=== PATIENT | female | born 1960 | race Caucasian/White ===

== ENCOUNTER 2024-09-08 16:20 | Inpatient (IN) | payer BC, OTHER ==
[~2024-09-08] VITALS: Ht 165.1 cm; Wt 68.5 kg
[2024-09-08 16:50] VITALS: PULSE 95; RESP 14; O2SAT 95
[2024-09-08] MEDS: ASPirin 325 MG TAB PO ONE (17:00)
[2024-09-08 17:07] LABS: Basophils # (auto) 0 10 ^3/uL (0-0.2); Basophils % (auto) 0.3 % (0.0-2.0); Eosinophils # (auto) 0 10 ^3/uL (0-0.8); Eosinophils % (auto) 0.6 % (0.0-7.0); Hematocrit 43.8 % (36.0-46.0); Hemoglobin 14.7 g/dL (12.2-16.2); Lymphocytes # (auto) 1.3 10 ^3/uL (0.4-5.4); Lymphocytes % (auto) 21.6 % (10.0-50.0); Mean Corpuscular Hemoglobin 29.6 pg (28.0-32.0); Mean Corpuscular Hgb Conc. 33.6 g/dL (32.0-36.0); Monocytes # (auto) 0.7 10 ^3/uL (0-1.3); Monocytes % (auto) 11.5 % (0.0-12.0); Neutrophils # (auto) 3.9 10 ^3/uL (1.6-8.6); Nucleated Red Blood Cells % 0.1 %; Platelet Count (auto) 236 10^3/uL (140-450); Red Blood Cells 4.97 10^6/uL (4.0-5.20); Red Cell Distribution Width 13.6 % (11.8-14.3); White Blood Cell 5.9 10^3/uL (4.4-10.8)
[2024-09-08] MEDS: hydrALAZINE HCL 20 MG/ML VL IV ONE (17:08)
--- NOTE | 2024-09-08 17:14 | DVH ---
EXAM: XY CHEST PORTABLE CLINICAL HISTORY: chest pain TECHNIQUE: Single AP view of the chest WID: COMPARISON: None FINDINGS: Lines and tubes: None Chest: The heart size and pulmonary vasculature is within normal limits. Calcified plaque projects over the thoracic spine No pleural effusion, pneumothorax, or consolidation. The osseous structures are grossly intact. Mild right curvature of the thoracic spine IMPRESSION: No acute cardiopulmonary abnormality.
[2024-09-08 17:24] LABS: Alanine Aminotransferase 23 U/L (7-40); Albumin 4.8 g/dL (3.2-4.8); Anion Gap 11 (5-15); Aspartate Aminotransferase 20 U/L (13-40); Calcium 9.9 mg/dL (8.7-10.4); Carbon Dioxide 23 mmol/L (20-31); Magnesium 1.8 mg/dL (1.6-2.6)
[2024-09-08 17:25] LABS: Bilirubin, Total 0.4 mg/dL (0.2-1.0); Total Protein 7.1 g/dL (5.7-8.2)
[2024-09-08 17:26] LABS: Alkaline Phosphatase 132 U/L (46-116); Blood Urea Nitrogen 8 mg/dL (9-23); Chloride 94 mmol/L (98-107); Glucose 132 mg/dL (74-106); Potassium 3.4 mmol/L (3.5-5.1); Sodium 128 mmol/L (136-145)
[2024-09-08 17:29] LABS: INR 0.97 (0.9-1.15); Partial Thromboplastin Time 29.1 SEC (24.5-34.5); Prothrombin Time 10.3 sec (9.3-11.8)
[2024-09-08] MEDS: SODIUM CHLORIDE 0.9% 500 ML IV ONE (17:49)
[2024-09-08] MEDS: ONDANSETRON HCL 4 MG/2 ML VIAL IV ONE (17:49)
--- NOTE | 2024-09-08 19:28 | ED.PDOC ---
History of Present Illness HPI Comments 64-year-old female patient with past medical history of SVTs, hypertrophic nonischemic cardiomyopathy, mixed connective tissue disorder presented with complaints of nausea, vomiting, dizziness, generalized weakness. Patient started having vomiting two days ago but was improved yesterday but today again had episodes of vomiting, without bleeding, does not remember the number of episode. She also mentioned associated dizziness they started at the same time and mild chest pain which she describes that pressure-like, substernal, nonradiating. She also mentioned associated palpitation which she thought was PVCs and she decided to come to the ER. She denied any diarrhea, shortness of breath, cough, abdominal pain, seizures, melena, hematemesis, hematochezia. Past medical history SVTs, hypertrophic nonischemic cardiomyopathy, mixed connective tissue disorder Past surgical history Denied Social history Denied smoking, alcohol, marijuana or any drug intake Medication history Patient takes Cardizem, levothyroxine, Plaquenil Allergic history Beta-annie Family history Hypertrophic obstructive cardiomyopathy in multiple members including sister and mother Review of system As described in the HPI Examination General Appearance: Alert, Oriented X3, Cooperative, mild distress HEENT: EOMI Respiratory: Clear to auscultation, Normal air movement Cardiovascular: Regular rate, Normal S1, Normal S2 Abdominal: Normal bowel sounds Extremities: No cyanosis, No edema, Normal pulses, No tenderness/swelling Skin: No rashes, No breakdown Neuro normal speech and tone Chief Complaint: General Weakness Time Seen by MD: 16:35 Allergies: Uncoded Allergies: BETA BLOCKERS (Allergy, Unknown, 09/08/24) Information Source: Patient Mode of Arrival: Wheelchair Differential Dx Considerations may include: Gastritis, gastroenteritis, chest wall pain, aortic dissection, angina, TN, hyponatremia, dehydration, pneumonia, pericarditis, UTI X-Ray, Labs, Meds, VS Vital Signs Date Time Temp Pulse Resp B/P (MAP) Pulse Ox O2 Delivery O2 Flow Rate FiO2 09/08/24 18:00 93 14 165/75 (105) 96 09/08/24 17:08 177/95 09/08/24 16:55 105 09/08/24 16:50 95 14 95 Room Air* 0 21 09/08/24 16:47 97.8 95 14 187/91 (123) 95 97.8 09/08/24 16:37 97.8 112 20 209/106 (140) 100 Lab Test 09/08/24 17:25 09/08/24 16:50 09/08/24 16:40 Range/Units Troponin I High Sensitivity 6 5 </=34 ng/L White Blood Count 5.9 4.4-10.8 10^3/uL Red Blood Count 4.97 4.0-5.20 10^6/uL Hemoglobin 14.7 12.2-16.2 g/dL Hematocrit 43.8 36.0-46.0 % Mean Corpuscular Volume 88.0 80.0-100.0 fL Mean Corpuscular Hemoglobin 29.6 28.0-32.0 pg Mean Corpuscular Hemoglobin Concent 33.6 32.0-36.0 g/dL Red Cell Distribution Width 13.6 11.8-14.3 % Platelet Count 236 140-450 10^3/uL Mean Platelet Volume 8.1 6.9-10.8 fL Neutrophils (%) (Auto) 66.0 37.0-80.0 % Lymphocytes (%) (Auto) 21.6 10.0-50.0 % Monocytes (%) (Auto) 11.5 0.0-12.0 % Eosinophils (%) (Auto) 0.6 0.0-7.0 % Basophils (%) (Auto) 0.3 0.0-2.0 % Neutrophils # (Auto) 3.9 1.6-8.6 10 ^3/uL Lymphocytes # (Auto) 1.3 0.4-5.4 10 ^3/uL Monocytes # (Auto) 0.7 0-1.3 10 ^3/uL Eosinophils # (Auto) 0 0-0.8 10 ^3/uL Basophils # (Auto) 0 0-0.2 10 ^3/uL Nucleated Red Blood Cells 0.1 % Prothrombin Time 10.3 9.3-11.8 sec Prothrombin Time INR 0.97 0.9-1.15 Activated Partial Thromboplast Time 29.1 24.5-34.5 SEC D-Dimer, Quantitative 0.35 0.0-0.49 mg/L FEU Sodium Level 128 L 136-145 mmol/L Potassium Level 3.4 L 3.5-5.1 mmol/L Chloride Level 94 L 98-107 mmol/L Carbon Dioxide Level 23 20-31 mmol/L Anion Gap 11 5-15 Blood Urea Nitrogen 8 L 9-23 mg/dL Creatinine 0.80 0.550-1.02 mg/dL Glomerular Filtration Rate Calc 82 >90 mL/min BUN/Creatinine Ratio 10.0 10.0-20.0 Serum Glucose 132 H 74-106 mg/dL Calcium Level 9.9 8.7-10.4 mg/dL Magnesium Level 1.8 1.6-2.6 mg/dL Total Bilirubin 0.4 0.2-1.0 mg/dL Aspartate Amino Transferase (AST) 20 13-40 U/L Alanine Aminotransferase (ALT) 23 7-40 U/L Alkaline Phosphatase 132 H 46-116 U/L B-Type Natriuretic Peptide 22.37 0-100 pg/mL Total Protein 7.1 5.7-8.2 g/dL Albumin 4.8 3.2-4.8 g/dL Thyroid Stimulating Hormone (TSH) 3.03 0.55-4.78 uIU/mL Lactic Acid Level 2.7 *H 0.4-2.0 mmol/L Current Medications Medications (Trade) Dose Ordered Sig/Jessica Route Start Time Stop Time Status Last Admin Hydralazine HCl (Apresoline Injection) 5 mg ONCE ONCE IV 09/08/24 16:45 09/08/24 16:46 DC 09/08/24 17:08 Sodium Chloride 500 ml @ 500 mls/hr Q1H ONCE IV 09/08/24 17:45 09/08/24 18:44 DC 09/08/24 17:49 Ondansetron HCl (Zofran) 4 mg ONCE ONCE IV 09/08/24 17:45 09/08/24 17:46 DC 09/08/24 17:49 Time of 1ST Reevaluation: 19:26 Reevaluation 1ST: Unchanged Patient Education/Counseling: Diagnosis, Treatment Family Education/Counseling: No Family Present Comments Patient presented with the vomiting, chest pain, dizziness, hypertensive crisis. workup was initiated. patient was found with the above mentioned diagnosis. Patient was given: IV hydralazine, IV fluids, IV ondansetron, potassium effervescent, magnesium oxide EKG showed ST depression in multiple leads, troponins were within normal limits Patient has been observed in the ED adequate length of time to insure improvement/stability. patient was admitted to the medicine team for further evaluation and treatment of their presentation. Patient needs hydration. Departure 1 Departure Time of Disposition: 19:26 Impression: Primary Impression: Chest pain Additional Impressions: Vomiting Hypertensive crisis Dizziness Disposition: ADMITTED INPATIENT Admit to: Tele Condition: Guarded Heart Score Heart Score: Heart Score Response (Comments) Value History Slightly Suspicious [address]-Deviation 2 Age >65 2 Risk Factors 1 or 2 risk factors 1 Troponin Normal limit 0 Total 5 PRIYANKA GA RESIDENT Sep 08, 2024 19:28
[2024-09-08 19:29] LABS: Lactic Acid w/Reflex 2.7 mmol/L (0.4-2.0)
[2024-09-08 19:50] VITALS: O2SAT 97
[2024-09-08] MEDS ORDERED: MORPHINE SULFATE INJ 2 MG/ml SYRG IV PRN (20:30)
[2024-09-08] MEDS ORDERED: NITROGLYCERIN 0.4 MG SL TAB SL PRN (20:30)
[2024-09-08] MEDS ORDERED: ONDANSETRON HCL 4 MG/2 ML VIAL IV PRN (20:30)
[2024-09-08] MEDS: PANTOPRAZOLE 40 MG/10 ML VIAL INJ IV ONE (20:39)
[2024-09-08] MEDS: MORPHINE SULFATE INJ 2 MG/ml SYRG IV PRN (20:59)
[2024-09-08] MEDS: MAGNESIUM OXIDE 400 MG TAB PO ONE (21:00)
[2024-09-08] MEDS: POTASSIUM EFFERVESENT TAB 25 MEQ GT ONE (21:00)
[2024-09-08] MEDS: SODIUM CHLOR 0.9% PF (SALINE LOCK) 10ML VIAL/SYR IV SCH (21:00)
[2024-09-08] MEDS ORDERED: PANTOPRAZOLE 40 MG/10 ML VIAL INJ IV ONE (21:15)
[2024-09-08] MEDS: SODIUM CHLORIDE 0.9% 1,000 ML IV SCH (21:15)
--- NOTE | 2024-09-08 21:24 | DVHHPRES ---
History of Present Illness Resident Creating Document: ARIELLE QUIÑONEZ RESIDENT History of Present Illness Patient is 64 years old female with past medical history of nonischemic cardiomyopathy/HOCM runs in the family from father's side, hypertension, mixed connective tissue disease, Raynaud's phenomenon, GERD, hypothyroidism came with a complaint of nausea and vomiting and dizziness. As per patient she had nausea and vomited 3 times 2 days before, vomiting was mostly watery content, no blood. Then yesterday she felt better but today in the afternoon she started having nausea and vomiting again, 3 times, watery content, no blood. Patient also reported some dizziness and lightheadedness but no loss of consciousness. On further discussion patient also reported having pressure-like chest pain, central in nature 5/10, no aggravating or relieving factor, no radiation. Patient denied any constipation or diarrhea, dysuria, cough, fever, dysarthria or change in vision or acute joint pain or swelling. on Arrival blood pressure was 209/106, tachycardia pulse 112. EKG revealed ST depression on 1, 2, aVL, V3, V4, V5, V6. Initial lab workup revealed hyponatremia with sodium 128, hypokalemia potassium 3.4, elevated alkaline phosphate 132, other lab workup Troponin, BNP, WBC, hemoglobin, serum creatinine, magnesium, serum bilirubin, AST, ALT was within normal limit. UDS negative, serum alcohol 3.7, D-dimer .35. CXR revealed cardiomegaly. Home medications-Cardizem 120 mg q.d., Levothyroxine 25 mcg q.a.m., hydroxychloroquine 200 mg daily, duloxetine 60 mg daily, omeprazole 40 mg daily, Boniva once a month Past Medical History nonischemic cardiomyopathy, hypertension, mixed connective tissue disease, Raynaud's phenomenon, GERD, hypothyroidism Past Surgical History 2 , tendon transplant both leg Family History Family history of hypertrophic obstructive cardiomyopathy in sister in and father's side, father of CVD Past Social History Denies smoking, alcoholism class drug abuse Review of Systems Review of Systems Allergy- beta annie Personal History/ Social History- Patient was seen today at the bedside. Respiratory- denies cough or short of breath or wheezing Gastrointestinal- denies any rectal bleeding, nausea or vomiting Musculoskeletal-denies acute joint swelling or tenderness or redness Neurological- denies acute dysarthria, dysphagia, change in vision Psychiatry- denies depression or SI or HI Skin- denies acute rash or purpura Allergies: Coded Allergies: Nifedipine (Verified Allergy, Severe, 09/09/24) Shellfish Allergy (Verified Allergy, Unknown, 09/09/24) Uncoded Allergies: BETA BLOCKERS (Allergy, Unknown, 09/08/24) Medications Current Medications Medications Dose Ordered Sig/Jessica Route Start Time Stop Time Status Last Admin Dose Admin Sodium Chloride 10 ml Q8HR IV 09/08/24 22:00 09/08/24 21:00 10 ML Ondansetron HCl 4 mg Q4HP PRN IV 09/08/24 20:30 Acetaminophen 650 mg Q6HP PRN PO 09/08/24 20:30 Morphine Sulfate 2 mg Q4HPRN PRN IV 09/08/24 20:30 09/08/24 20:59 2 MG Nitroglycerin 0.4 mg Q5MINP PRN SL 09/08/24 20:30 Morphine Sulfate 2 mg Q30M PRN IV 09/08/24 20:30 Hydralazine HCl 10 mg Q6HP PRN IV 09/08/24 20:45 UNV Exam Vital Signs Vital Signs Date Time Temp Pulse Resp B/P (MAP) Pulse Ox O2 Delivery O2 Flow Rate FiO2 09/08/24 20:59 107 16 152/62 09/08/24 18:00 96 09/08/24 16:50 Room Air* 0 21 09/08/24 16:47 97.8 97.8 Exam General examination- question awake, alert, oriented, conversant HEENT- PEERLA, no acute nasal discharge Cardiovascular- S1-S2 audible, rate and rhythm regular, + murmur Respiratory- CTAB, no wheeze or rhonchi Gastrointestinal-nontender, bowel sound+. Nondistended Musculoskeletal-no acute joint swelling or tenderness or redness# Lower extremity- no leg edema Neurological- cranial nerves intact, no acute dysarthria or dysphagia Psychiatry- denies depression or SI or HI Skin- no acute rash or purpura Labs/Xrays Labs Test 09/08/24 19:53 09/08/24 16:50 Range/Units Lactic Acid Level 1.8 0.4-2.0 mmol/L Troponin I High Sensitivity 8 </=34 ng/L White Blood Count 5.9 4.4-10.8 10^3/uL Red Blood Count 4.97 4.0-5.20 10^6/uL Hemoglobin 14.7 12.2-16.2 g/dL Hematocrit 43.8 36.0-46.0 % Mean Corpuscular Volume 88.0 80.0-100.0 fL Mean Corpuscular Hemoglobin 29.6 28.0-32.0 pg Mean Corpuscular Hemoglobin Concent 33.6 32.0-36.0 g/dL Red Cell Distribution Width 13.6 11.8-14.3 % Platelet Count 236 140-450 10^3/uL Mean Platelet Volume 8.1 6.9-10.8 fL Neutrophils (%) (Auto) 66.0 37.0-80.0 % Lymphocytes (%) (Auto) 21.6 10.0-50.0 % Monocytes (%) (Auto) 11.5 0.0-12.0 % Eosinophils (%) (Auto) 0.6 0.0-7.0 % Basophils (%) (Auto) 0.3 0.0-2.0 % Neutrophils # (Auto) 3.9 1.6-8.6 10 ^3/uL Lymphocytes # (Auto) 1.3 0.4-5.4 10 ^3/uL Monocytes # (Auto) 0.7 0-1.3 10 ^3/uL Eosinophils # (Auto) 0 0-0.8 10 ^3/uL Basophils # (Auto) 0 0-0.2 10 ^3/uL Nucleated Red Blood Cells 0.1 % Prothrombin Time 10.3 9.3-11.8 sec Prothrombin Time INR 0.97 0.9-1.15 Activated Partial Thromboplast Time 29.1 24.5-34.5 SEC D-Dimer, Quantitative 0.35 0.0-0.49 mg/L FEU Sodium Level 128 L 136-145 mmol/L Potassium Level 3.4 L 3.5-5.1 mmol/L Chloride Level 94 L 98-107 mmol/L Carbon Dioxide Level 23 20-31 mmol/L Anion Gap 11 5-15 Blood Urea Nitrogen 8 L 9-23 mg/dL Creatinine 0.80 0.550-1.02 mg/dL Glomerular Filtration Rate Calc 82 >90 mL/min BUN/Creatinine Ratio 10.0 10.0-20.0 Serum Glucose 132 H 74-106 mg/dL Calcium Level 9.9 8.7-10.4 mg/dL Magnesium Level 1.8 1.6-2.6 mg/dL Total Bilirubin 0.4 0.2-1.0 mg/dL Aspartate Amino Transferase (AST) 20 13-40 U/L Alanine Aminotransferase (ALT) 23 7-40 U/L Alkaline Phosphatase 132 H 46-116 U/L B-Type Natriuretic Peptide 22.37 0-100 pg/mL Total Protein 7.1 5.7-8.2 g/dL Albumin 4.8 3.2-4.8 g/dL Thyroid Stimulating Hormone (TSH) 3.03 0.55-4.78 uIU/mL Assessment/Plan Assessment/Plan #Hypertensive urgency -continue hydralazine 10 mg q.6h p.r.n. --continue Cardizem 120 mg q.d. -monitor vitals #Nausea and vomiting likely due to esophagitis or gastritis -continue pantoprazole 40 mg IV daily #Acute Chest pain likely due to hypertensive urgency -rule out ACS -EKG- no acute ST elevation -EKG changes likely due to hypertrophic cardiomyopathy --troponin I and BNP with a normal limit -continue current management #Dizziness, lightheaded likely due to hypertensive urgency/dehydration -continue IV normal mg of IV daily -monitor BP #Hyponatremia likely due to nausea and vomiting - continue IV normal saline 100 mL/hour -monitor CMP # Lactic acidosis -lactic acid 0.7> 1.8 -continue IV normal saline 100 mL/hours #Hypokalemia, -potassium 3.4 -replenished #Hypothyroidism -TSH 3.03 -continue levothyroxine 25 mcg q.a.m. #Mixed connective tissue disease -continue Cardizem 120 mg q.d. # Raynaud's phenomenon --continue Cardizem 120 mg q.d. # Hypertrophic obstructive cardiomyopathy -continue current management # History of SVT -resume home medications # GERD -pantoprazole IV 40 mg daily Holding hydroxy chloroquine, Ibendronate to rule out esophagitis versus gastritis, continuing with the pantoprazole Goals of care/advance care planning; FULL CODE; discussed with the patient >15 minutes PUD prophylaxis: Pantoprazole DVT prophylaxis: Lovenox PCP-Dr. Munoz [employer] Dr. Clemons Plan discussed with Dr. Hawkins, nursing staff, patient Total time spent on patient evaluation, chart review, assessment and plan, discussion discussion >30 minutes Plan discussed with: Patient Plan discussed with: Patient, Spouse, Other (RN) My Orders Orders - ARIELLE QUIÑONEZ Procedure Category Date Status Time Sodium Chloride Lock PHA 09/08/24 In Process (Saline Lock Ns) 22:00 Ondansetron Hcl PHA 09/08/24 In Process (Zofran) 20:30 Complete Blood Count LAB 09/09/24 Verified 04:00 Comprehensive LAB 09/09/24 Verified Metabolic Panel 04:00 Cardiac DIET 09/09/24 Transmitted Diet-2gna,Lofat,Lochol Breakfast Condition: Unstable VAISHNAVI 09/08/24 In Process 20:28 Acetaminophen Tablet PHA 09/08/24 In Process (Tylenol Tablet) 20:30 Morphine Sulfate PHA 09/08/24 In Process Injection 20:30 Nitroglycerin PHA 09/08/24 In Process Sublingual (Ntrostat 20:30 Morphine Sulfate PHA 09/08/24 In Process Injection 20:30 Oxygen By Nasal RT 09/08/24 Transmitted Cannula 20:28 Stat Ekg For Chest VAISHNAVI 09/08/24 In Process Pain 20:28 Notify Md Of Changes VAISHNAVI 09/08/24 In Process From Base 20:28 Editor Dictionary For [facility] 09/08/24 In Process 24 Hours 20:28 Emergency Dysrhythmia [facility] 09/08/24 In Process Protocol 20:28 Rhythm Strips Once [facility] 09/08/24 In Process Every Shift 20:28 Admit ADMIT 09/08/24 Transmitted 20:40 Hydralazine Injection [facility] 09/08/24 Logged (Apresoline Inject 20:45 Date of Service: Sep 08, 2024 Billing Provider: MARILOU HAWKINS MD Common Visit Codes: 63695-BFWPSCQ INP/OBS CARE (HIGH) Secondary Visit Codes: 14723-[id number] CARE PLAN 30 MINUTES ARIELLE QUIÑONEZ Sep 08, 2024 21:24 MARILOU HAWKINS MD Sep 11, 2024 11:57
[2024-09-09] VITALS (7 sets, daily range): BP systolic 123–157; BP diastolic 66–91; PULSE 67–93; RESP 16–18; TEMP 97.7–98.4; O2SAT 98–100
[2024-09-09 00:06] LABS: Urine Bacteria None Seen /hpf (None Seen); Urine WBC None Seen /hpf (0 - 5)
[2024-09-09 00:56] LABS: Urine Blood Negative /uL (Negative); Urine Clarity Clear (Clear); Urine Protein, UAD Negative (Negative); Urine Specific Gravity 1.002 (1.001-1.035); Urine Urobilinogen Normal (Negative)
[2024-09-09 00:59] LABS: Urine Color STRAW (Yellow)
[2024-09-09 01:21] LABS: Sodium Urine 33 mmol/L (40-220)
[2024-09-09 01:29] LABS: Amphetamine Screen, Urine Neg (NEGATIVE); Benzodiazephine Screen, Urine Neg (NEGATIVE)
[2024-09-09 01:30] LABS: Barbiturate Scree,Urine Neg (NEGATIVE); Cocaine Screen, Urine Neg (NEGATIVE); Creatinine, Urine 7.86 mg/dL (30.0-125.0); Opiate Scree,Urine Neg (NEGATIVE)
[2024-09-09 01:31] LABS: Cannabinoid Screen, Urine Neg (NEGATIVE); Phencyclidine Screen, Urine Neg (NEGATIVE)
[2024-09-09 02:30] LABS: Protein, Urine < 6.0 mg/dL (1-14)
[2024-09-09 02:33] LABS: Creatinine, Urine 7.79 mg/dL (30.0-125.0); Urine Protein/Creatinine Ratio 0.77
[2024-09-09] MEDS: ENOXAPARIN SOD 40 MG/0.4 ML SYRINGE SC ONE (03:30)
[2024-09-09] MEDS ORDERED: DILT-29 PO (04:42)
[2024-09-09] MEDS ORDERED: LEVO25TA6 PO (04:42)
[2024-09-09] MEDS ORDERED: DULO60CA41 PO (04:42)
[2024-09-09] MEDS ORDERED: HYDR200T36 PO (04:42)
[2024-09-09] MEDS ORDERED: OMEP20TA PO (04:42)
[2024-09-09] MEDS: LEVOTHYROXINE SODIUM 25 MCG TAB PO SCH (06:26)
[2024-09-09 08:25] LABS: Basophils # (auto) 0 10 ^3/uL (0-0.2); Basophils % (auto) 0.6 % (0.0-2.0); Eosinophils # (auto) 0 10 ^3/uL (0-0.8); Eosinophils % (auto) 0.4 % (0.0-7.0); Hematocrit 40.9 % (36.0-46.0); Hemoglobin 14.2 g/dL (12.2-16.2); Lymphocytes % (auto) 28.7 % (10.0-50.0); Mean Corpuscular Hemoglobin 30.2 pg (28.0-32.0); Mean Corpuscular Hgb Conc. 34.6 g/dL (32.0-36.0); Mean Corpuscular Volume 87.3 fL (80.0-100.0); Monocytes # (auto) 0.5 10 ^3/uL (0-1.3); Monocytes % (auto) 13.9 % (0.0-12.0); Neutrophils % (auto) 56.4 % (37.0-80.0); Nucleated Red Blood Cells % 0.1 %; Platelet Count (auto) 235 10^3/uL (140-450); Red Blood Cells 4.69 10^6/uL (4.0-5.20); Red Cell Distribution Width 13.4 % (11.8-14.3); White Blood Cell 3.6 10^3/uL (4.4-10.8)
[2024-09-09 08:46] LABS: Alanine Aminotransferase 18 U/L (7-40); Alkaline Phosphatase 110 U/L (46-116); Anion Gap 10 (5-15); Calcium 9.7 mg/dL (8.7-10.4); Carbon Dioxide 23 mmol/L (20-31); Magnesium 2.3 mg/dL (1.6-2.6); Potassium 3.8 mmol/L (3.5-5.1); Sodium 140 mmol/L (136-145)
[2024-09-09 08:47] LABS: Albumin 4.3 g/dL (3.2-4.8)
[2024-09-09 08:48] LABS: Bilirubin, Total 0.4 mg/dL (0.2-1.0); Total Protein 6.5 g/dL (5.7-8.2)
[2024-09-09 08:56] LABS: Aspartate Aminotransferase 12 U/L (13-40); BUN/Creatinine Ratio 7.5 (10.0-20.0); Blood Urea Nitrogen < 5 mg/dL (9-23); Chloride 107 mmol/L (98-107); Glucose 118 mg/dL (74-106)
[2024-09-09] MEDS: PANTOPRAZOLE 40 MG/10 ML VIAL INJ IV SCH (10:12)
[2024-09-09] MEDS: DULoxetine HCL 30 MG CAP PO SCH (10:12)
[2024-09-09] MEDS: D5W/SOD CHL 0.45% 500 ML IV SCH (10:23)
[2024-09-09] MEDS: dilTIAZem 120MG ER CAP PO SCH (10:28)
--- NOTE | 2024-09-09 13:32 | DVHSR ---
APPROVED REPORT EXAM: LIMITED Two-dimensional and M-mode echocardiogram with Doppler and color Doppler. Blood Pressure: 130/66 mmHg INDICATION HOCM, hypertensive urgency RISK FACTORS Height: 5'5, Weight: 151 DIMENSIONS LVDd4.3 (3.8-5.7cm)LA (2D)3.8 (1.9-4.0cm)Aortic Root3.7 (2.0-3.7cm) LVDs2.9 (2.5-4.0cm)LA (MM) (1.9-4.0cm)Aortic Cusp Exc1.7 (1.5-2.0cm) EF (%) 60.0 (55-70%)Rt. Atrium2.6 (1.9-4.0cm)Asc. Aorta3.2 cm IVSd1.2 (0.7-1.1cm)RV (D) (1.8-2.4cm) PWd1.4 (0.7-1.1cm) Mitral Valve MitralMitral Stenosis E wave0.90m/sMV Mean GR.mmHg A wave1.03m/sMV Peak GR.33mmHg E/A ratio0.92D MVAcm2 DECEL [id number] 1/2 Timems Aortic Valve Aortic ValveAortic Stenosis V11.04m/Rafael Mean GR.4mmHg V21.26m/Rafael Peak GR.6mmHg LVOT Diameter1.8 (1.8-2.4cm)Doppler AVA2.10cm2 Pulmonic Valve V20.97m/s Other Information Conclusion Normal left ventricular size and dimension. Normal left ventricular systolic function estimated ejec tion fraction of 60%. There is a grade 1 diastolic dysfunction. Normal right ventricular size and dimension. Normal right ventricular systolic function. Normal biatrial size and dimension. Normal aortic valve structure and function. Normal mitral valve structure and function. Normal tricuspid valve structure and function. There is trivial tricuspid valve regurgitation. The pulmonary valve is grossly normal. No pericardial effusion.
[2024-09-09] MEDS: ACETAMINOPHEN 325 MG TAB PO PRN (13:40)
[2024-09-09] MEDS: hydrALAZINE HCL 20 MG/ML VL IV PRN (13:58)
[2024-09-09 18:53] LABS: Anion Gap 7 (5-15); Carbon Dioxide 23 mmol/L (20-31); Potassium 3.9 mmol/L (3.5-5.1); Sodium 138 mmol/L (136-145)
[2024-09-09 18:54] LABS: Calcium 9.4 mg/dL (8.7-10.4)
[2024-09-09 18:59] LABS: BUN/Creatinine Ratio 14.7 (10.0-20.0); Blood Urea Nitrogen 10 mg/dL (9-23); Glucose 93 mg/dL (74-106)
[2024-09-09 19:00] LABS: Chloride 108 mmol/L (98-107)
--- NOTE | 2024-09-09 23:00 | DVHDSRES ---
Discharge Summary Date of Admission Resident Creating Document: AMANDA PRIETO RESIDENT Sep 08, 2024 at 20:28 Date of Discharge: Sep 09, 2024 Admitting Diagnosis Chest pain, nausea, vomiting, dizziness/lightheaded Wounds: no wounds Labs/Diagnostic Data: Laboratory Results Test 09/09/24 18:14 09/09/24 07:25 09/08/24 23:30 09/08/24 19:53 Sodium Level 138 mmol/L (136-145) Potassium Level 3.9 mmol/L (3.5-5.1) Chloride Level 108 mmol/L (98-107) Carbon Dioxide Level 23 mmol/L (20-31) Anion Gap 7 (5-15) Blood Urea Nitrogen 10 mg/dL (9-23) Creatinine 0.68 mg/dL (0.550-1.02) Glomerular Filtration Rate Calc 97 mL/min (>90) BUN/Creatinine Ratio 14.7 (10.0-20.0) Serum Glucose 93 mg/dL (74-106) Calcium Level 9.4 mg/dL (8.7-10.4) White Blood Count 3.6 10^3/uL (4.4-10.8) Red Blood Count 4.69 10^6/uL (4.0-5.20) Hemoglobin 14.2 g/dL (12.2-16.2) Hematocrit 40.9 % (36.0-46.0) Mean Corpuscular Volume 87.3 fL (80.0-100.0) Mean Corpuscular Hemoglobin 30.2 pg (28.0-32.0) Mean Corpuscular Hemoglobin Concent 34.6 g/dL (32.0-36.0) Red Cell Distribution Width 13.4 % (11.8-14.3) Platelet Count 235 10^3/uL (140-450) Mean Platelet Volume 8.3 fL (6.9-10.8) Neutrophils (%) (Auto) 56.4 % (37.0-80.0) Lymphocytes (%) (Auto) 28.7 % (10.0-50.0) Monocytes (%) (Auto) 13.9 % (0.0-12.0) Eosinophils (%) (Auto) 0.4 % (0.0-7.0) Basophils (%) (Auto) 0.6 % (0.0-2.0) Neutrophils # (Auto) 2.0 10 ^3/uL (1.6-8.6) Lymphocytes # (Auto) 1.0 10 ^3/uL (0.4-5.4) Monocytes # (Auto) 0.5 10 ^3/uL (0-1.3) Eosinophils # (Auto) 0 10 ^3/uL (0-0.8) Basophils # (Auto) 0 10 ^3/uL (0-0.2) Nucleated Red Blood Cells 0.1 % Magnesium Level 2.3 mg/dL (1.6-2.6) Total Bilirubin 0.4 mg/dL (0.2-1.0) Aspartate Amino Transferase (AST) 12 U/L (13-40) Alanine Aminotransferase (ALT) 18 U/L (7-40) Alkaline Phosphatase 110 U/L (46-116) Total Protein 6.5 g/dL (5.7-8.2) Albumin 4.3 g/dL (3.2-4.8) Urine Color Straw (Yellow) Urine Clarity Clear (Clear) Urine pH 7.0 (5.0-9.0) Urine Specific [place] 1.002 (1.001-1.035) Urine Protein Negative (Negative) Urine Ketones Negative (Negative) Urine Blood Negative /uL (Negative) Urine Nitrite Negative (Negative) Urine Bilirubin Negative (Negative) Urine Urobilinogen Normal mg/dL (Negative) Urine Leukocyte Esterase Negative /uL (Negative) Urine RBC <1 /hpf (0 - 4) Urine WBC None seen /hpf (0 - 5) Urine Squamous Epithelial Cells None seen /hpf (<5) Urine Bacteria None seen /hpf (None Seen) Urine Osmolality 99 mOsm/kg Urine Creatinine 7.79 mg/dL (30.0-125.0) Urine Protein/Creatinine Ratio 0.77 Urine Sodium 33 mmol/L (40-220) Urine Glucose Normal mg/dL (Normal) Urine Total Protein < 6.0 mg/dL (1-14) Urine Opiates Screen Neg (NEGATIVE) Urine Fentanyl Screen Neg (NEGATIVE) Urine Barbiturates Screen Neg (NEGATIVE) Urine Phencyclidine Screen Neg (NEGATIVE) Urine Amphetamines Screen Neg (NEGATIVE) Urine Benzodiazepines Screen Neg (NEGATIVE) Urine Cocaine Screen Neg (NEGATIVE) Urine Cannabinoids Screen Neg (NEGATIVE) Lactic Acid Level 1.8 mmol/L (0.4-2.0) Troponin I High Sensitivity 8 ng/L (</=34) Plasma/Serum Blood Alcohol 3.7 mg/dL (<10) Test 09/08/24 16:50 Prothrombin Time 10.3 sec (9.3-11.8) Prothrombin Time INR 0.97 (0.9-1.15) Activated Partial Thromboplast Time 29.1 SEC (24.5-34.5) D-Dimer, Quantitative 0.35 mg/L FEU (0.0-0.49) B-Type Natriuretic Peptide 22.37 pg/mL (0-100) Thyroid Stimulating Hormone (TSH) 3.03 uIU/mL (0.55-4.78) Other Laboratory Tests 09/09/24 18:14 09/09/24 07:25 Brief Hx & Hospital Course: HPI Patient is a 64-year-old female with a past medical history as described below came to the ED with a chief complaint of multiple episodes of vomiting and dizziness for 1 day prior to admission. Patient reported that she lives in [place] and on Wednesday 4 days prior to admission he had 3 episodes of vomiting which most mostly whitish liquid and no blood. Patient denied fever, chills, abdominal pain. The following 2 days she traveled to [place] and was fine Wednesday she arrived at [place] where she was feeling nauseated and had 3-4 episodes of vomiting which mostly consisted of yellowish fluid, no blood, no associated fever, abdominal pain , chills, diarrhea. Patient reports that she had low appetite as in the previous 3-4 days and was eating only home cooked food. No previous travel history. Patient reports passing gas and states that she is usually constipated and she usually has a bowel movement once or twice every week. On admission patient had elevated blood pressure 209/106 mmHg, tachycardia pulse at 111. EKG revealed ST depression in lead onto 1,2 aVL V3, V4 V5. Initial lab workup revealed hyponatremia with sodium 128, hypokalemia potassium 3.4, elevated alkaline phosphate 132, other lab workup Troponin, BNP, WBC, hemoglobin, serum creatinine, magnesium, serum bilirubin, AST, ALT was within normal limit. UDS negative, serum alcohol 3.7, D-dimer .35. CXR revealed cardiomegaly. Past medical history: History of SVT, nonischemic cardiomyopathy, hypertension, mixed connective tissue disease, Raynaud's phenomenon, GERD, hypothyroidism, h istory of preeclampsia Past surgical history: 2 C sections, tendon repair left foot Family history: Family history of hypertrophic obstructive cardiomyopathy in sister. Father of VT in his 40s. Social history: Denies smoking, alcohol, drug use Home medication: Cardizem 120 mg once daily, duloxetine 60 mg once daily, hydroxychloroquine 200 mg once daily, levothyroxine 25 mcg q.a.m., omeprazole 40 mg once daily Hospital course Patient had elevated blood pressure when she was admitted to the ER and was given hydralazine IV. Lactic acid was elevated for which the patient was given IV fluids. Her potassium was slightly, which was adequately replenished. Patient's sodium was low at 128 and she was started on normal saline and in the morning her BMP showed improved serum sodium levels at 140. In the morning patient was done D5 half NS and in the afternoon her sodium came down to 138. Patient was started on her home medications. Orthostatic vitals were negative for orthostatic hypotension. Patient's blood pressure remained stable during the stay in the hospital. Patient tolerated regular diet well without nausea, vomiting, diarrhea, abdominal pain. Patient was discharged in stable condition to home. Review of systems Patient seen and examined at the bedside. Patient denies nausea, vomiting, abdominal pain, diarrhea since the time she has been admitted to the hospital. Patient reveals she is feeling better than when she came in and does not feel dizziness. Physical Examination on the day of discharge Gen - no pallor, no icterus, no cyanosis, no clubbing, no LAD, no edema . Skin - Patients skin is warm and dry and her hands are red. HEENT - normocephalic, atraumatic, slightly dry mucous membranes. Neck - full ROM, no LAD, no JVD Pulmonary - B/L vesicular breath sounds. no crackles, no wheezing, no stridor. cardiovascular - normal S1,S2 heard. no murmurs heard. peripheral pulses normal radial 2+, pedal 2+. capillary refill normal <2 secs. GI - soft abdomen without tenderness to palpation . no hepatosplenomegaly. Bowel sounds normoactive Neurological - Patient is A/O X 3 . Bilateral upper extremity strength 5/5, bilateral lower extremity strength 5/5, no facial droop, normal speech, no tremor, no sensory deficits. Discharge plan Patient was discharged in stable condition to home advised to follow up with the PCP and her greenhouse florist, which she reports she has an appointment with both of them on Wednesday09/13/2024. Continued on home medications. Patient reports that she has hydrochlorothiazide 25 mg at home for p.r.n. use for high blood pressure. Patient was advised to check her blood pressure every 8 hours and use medication as advised. Goals of care discussed for 20 minutes; full code Case discussed with Dr. Kirby Consults/Reason for consult no consultation Operations or Procedures Chest x-ray IMPRESSION: No acute cardiopulmonary abnormality. Condition at Discharge: Stable Final Diagnosis/Problems List #Hypertensive urgency #Nausea and vomiting likely d/t acute viral gastroenteritis #Acute Chest pain, ACS ruled out likely #Hypertensive heart disease without heart failure #Dizziness likely d/t dehydration #Hyponatremia like #Lactic acidosis #Hypokalemia, # H/o Hypothyroidism # H/o Mixed connective tissue disease # Raynaud's phenomenon # History of SVT # GERD Discharge Disposition: Home Discharge Instruct/Medications Diet: Regular Activity: No Restrictions, As Tolerated Follow Up/Referral: Follow up with the PCP in one week Follow up with the greenhouse florist in one week Medications: as per EMR Continue HCTZ that the patient reports to have at home PRN for HTN Discharge Statement: "Patient was advised to return to the ER or call 911 if any headaches, dizziness, shortness of breath, chest pain, abdominal pain, bleeding, fevers, or worsening of medical condition. Patient was counseled about treatment plan, medications, possible side effects, patientverbalized understanding. All questions were answered to the best of my ability. This discharge took greater then 30 minutes in planning, reviewing documentation, counseling the patient, and discussing with other team members." Addendum Addendum Addendum I was physically present for the mccrary portions of the service provided to patient by THE RESIDENT. I have reviewed the documentation, discussed the case with resident and agree with the resident's documentation except as noted. Also the patient's clinical case was discussed with the patient's nurse. This medical document was created using an electronic medical record system with computerized dictation system. Although this document has been carefully reviewed, there might still be some phonetic and typographical errors. These areas are purely typographical due to imperfections of the software programs, and do not reflect any compromise in the patient's medical care. Late signature. Date of Service: Sep 09, 2024 Billing Provider: ELIZABETH KIRBY MD Common Visit Codes: 11294-FVO/OBS DISCH DAY >30min Secondary Visit Codes: 97614-KPGMDODQ CARE PLAN 30 MINUTES (20 minutes) AMANDA PRIETO RESIDENT Sep 09, 2024 23:00 ELIZABETH KIRBY MD Sep 11, 2024 04:42
[2024-09-10] MEDS ORDERED: ENOXAPARIN SOD 40 MG/0.4 ML SYRINGE SC SCH (10:00)
--- NOTE | 2024-09-11 06:44 | ECG ---
[facility] Test Date: 2024-09-08 Test Time: 16:32:58 Pat Name: LISE WALKER Department: ER Room: 0205T Gender: F Computer Lab Aide: MIGUEL : 1960 Requested By: PRIYANKA GA Order Number: [id number] Reading MD: Measurements Intervals Corea Rate: 105 P: 64 HI: 172 QRS: 65 QRSD: 89 T: -10 QT: 362 QTc: 479 Interpretive Statements Sinus tachycardia Biatrial enlargement Anteroseptal infarct, old Repol abnrm, severe global ischemia (LM/MVD) Please click the below link to view image of tracing.
== END 2024-09-09 20:45 | disposition home or self-care (01) | DRG 641 ==
LOC: ER 16:20 → OVERFLOW 20:28 → TELE-CENTR 09-09 02:57
PROVIDERS: ADMIT Internal Medicine; ATTEND Student in an Organized Health Care Education/Training Program
DX: E86.0 Dehydration (principal); M35.1 Other overlap syndromes; I16.0 Hypertensive urgency; A08.4 Viral intestinal infection, unspecified; E87.1 Hypo-osmolality and hyponatremia; E87.20 Acidosis, unspecified; K21.9 Gastro-esophageal reflux disease without esophagitis; E03.9 Hypothyroidism, unspecified; I73.00 Raynaud's syndrome without gangrene; E87.6 Hypokalemia; I11.9 Hypertensive heart disease without heart failure; Z82.49 Family history of ischemic heart disease and other diseases of the circulatory system; Z79.899 Other long term (current) drug therapy
CPT/HCPCS: 36415; 71045; 80048; 80053; 80307; 80320; 81001; 82570; 83605; 83735; 83880; 83935; 84156; 84300; 84443; 84484; 85025; 85379; 85610; 85730; 87040; 93005; 93306; G0378; J2405; J2470